=== PATIENT | female | born 1995 | race African-American/Black ===

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

== ENCOUNTER 2017-05-20 18:08 | Emergency (ER) | payer SELFPAY ==
[~2017-05-20] VITALS: Ht 154.9 cm; Wt 68.0 kg
[~2017-05-20 18:08] MED LIST changes: +IBUP-232 PO; -METO25TA3 PO; +OXYC1TAB63 PO; -RANI150T PO; +SENN1TAB PO
[2017-05-20 18:10] VITALS: BP 114/69; PULSE 118; RESP 20; TEMP 100.8; O2SAT 100
[2017-05-20] MEDS ORDERED: AMOX875T PO (18:22)
--- NOTE | 2017-05-20 18:25 | PD ---
HPI Chief Complaint: ENT Complaint Time Seen by Provider: 18:21 Travel History International Travel<30 days: No Contact w/Intl Traveler<30days: No Traveled to known affect area: No History of Present Illness HPI 21-year-old female presents for evaluation of sore throat. Symptoms started this morning. Hurts to swallow. Associated with fever, myalgias. She is not using [id number] medications for symptom relief. Denies cough, congestion , rash, recent travel, sick contacts. She is currently menstruating. No other complaints. PFSH Past Medical History Cancer: No Cardiovascular Problems: Yes Diminished Hearing: No Endocrine: No Genitourinary: No Immune Disorder: No Musculoskeletal: No Neurologic: No Psychiatric: No Reproductive: No Respiratory: No ?: Not LMP: 05/20/17 : 3 Para: 2 Past Surgical History Abdominal Surgery: Yes (C SECTION X 2) Section: Yes (X2) Social History Alcohol Use: No Tobacco Use: No Substance Use: No Allergies-Medications (Allergen,Severity, Reaction): Coded Allergies: No Known Allergies (Unverified , 10/30/16) Reported Meds & Prescriptions Reported Meds & Active Scripts Active Senna Plus 8.6-50 mg (Sennosides-Docusate Sodium) 1 Tab Tab 2 Tab PO HS PRN Ibuprofen 600 Mg Tab 600 Mg PO Q6H PRN Oxycodone-Acetaminophen 5-325 mg Tab 2 Tab PO Q4H PRN Ferrous Sulfate 325 Mg Tab 325 Mg PO TID Review of Systems Except as stated in HPI: all other systems reviewed are Neg Physical Exam Narrative GENERAL: Well-developed well-nourished female in no acute distress. Vital signs have been reviewed. SKIN: Warm and dry. HEAD: Atraumatic. Normocephalic. EYES: Pupils equal and round. No scleral icterus. No injection or drainage. ENT: No nasal bleeding or discharge. Mucous membranes pink and moist. There is oropharyngeal erythema and exudate formation. Uvula midline with no mass effect. NECK: Trachea midline. No JVD. There is tender anterior cervical lymphadenopathy. CARDIOVASCULAR: Regular rate and rhythm. No murmur appreciated. RESPIRATORY: No accessory muscle use. Clear to auscultation. Breath sounds equal bilaterally. GASTROINTESTINAL: Abdomen soft, non-tender, nondistended. Hepatic and splenic margins not palpable. Data Data Last Documented VS Vital Signs Date Time Temp Pulse Resp B/P (MAP) Pulse Ox O2 Delivery O2 Flow Rate FiO2 05/20/17 18:10 100.8 118 20 114/69 (84) 100 Room Air Orders Orders Ibuprofen (Motrin) (05/20/17 18:30) Amoxicillin (Trimox) (05/20/17 18:30) MDM Medical Decision Making Medical Screen Exam Complete: Yes Emergency Medical Condition: Yes Medical Record Reviewed: Yes Differential Diagnosis Exudate pharyngitis, tonsillitis, peritonsillar abscess, infectious mononucleosis, herpangina, epiglottitis, retropharyngeal abscess Narrative Course 21-year-old female sore throat for one day. She is febrile and tachycardic. She is not ill-appearing but she does have exudative pharyngitis, anterior cervical lymphadenopathy, her Centor score is a 4/4 and so she will be treated empirically for streptococcal pharyngitis with amoxicillin. She'll be given a dose here. She is stable for discharge. Diagnosis Primary Impression: Exudative pharyngitis Additional Instructions: Medication as prescribed. Stay well hydrated and well-nourished. Alternate Tylenol and Motrin for pain and fever per dosing instructions on the bottle. Return for any emergent medical conditions. Med/Other Pt SpecificInfo: Prescription(s) given Scripts Amoxicillin (Amoxicillin) 875 Mg Tab 875 MG PO BID for Infection for 10 Days, TAB 0 Refills Prov: Iris Carrasco DO 05/20/17 Disposition: 01 DISCHARGE HOME Condition: Stable Colin Kim May 20, 2017 18:25
[2017-05-20] MEDS ORDERED: AMOXICILLIN 875 MG TAB PO ONE (18:30)
[2017-05-20] MEDS ORDERED: IBUPROFEN 800 MG TAB PO ONE (18:30)
== END 2017-05-20 18:47 | disposition home or self-care (01) ==
LOC: NEPK 18:08
DX: J02.9 Acute pharyngitis, unspecified (principal)
CPT/HCPCS: 99283

== ENCOUNTER 2018-01-13 01:14 | Emergency (ER) | payer SELFPAY ==
[~2018-01-13] VITALS: Ht 154.9 cm; Wt 74.0 kg
[~2018-01-13 01:14] MED LIST changes: +AMOX875T PO; -FERR325T PO
[2018-01-13 01:21] VITALS: BP_SYST 118; BP_SYST 96; BP_DIAS 62; BP_DIAS 74; PULSE 77; RESP 18; TEMP 97.6; O2SAT 99
--- NOTE | 2018-01-13 01:37 | PD ---
HPI Chief Complaint: Cold / Flu Symptoms Time Seen by Provider: 01:28 Travel History International Travel<30 days: No Contact w/Intl Traveler<30days: No Traveled to known affect area: No History of Present Illness HPI 22-year-old female with no significant medical history presents emergency department for evaluation of sore throat and cough 1 week. Throat is a mild burning. Exacerbated with swallowing. patient reports that she has been coughing up small chunks of a yellow sputum intermittently. She believes these may be tonsil stones after doing clinical research. Patient denies any chest pain or tightness. No difficulty breathing. She has not had any fever or chills. She denies any nausea, vomiting, diarrhea. She has no other symptoms to report.. PFSH Past Medical History Cancer: No Cardiovascular Problems: Yes Diminished Hearing: No Endocrine: No Genitourinary: No Immune Disorder: No Musculoskeletal: No Neurologic: No Psychiatric: No Reproductive: No Respiratory: No Tetanus Vaccination: Unknown Influenza Vaccination: No ?: Not LMP: 01/03/2018 : 3 Para: 2 Past Surgical History Abdominal Surgery: Yes (C SECTION X 2) Section: Yes (X2) Other Surgery: Yes Social History Alcohol Use: No Tobacco Use: No Substance Use: No Allergies-Medications (Allergen,Severity, Reaction): Coded Allergies: No Known Allergies (Unverified , 10/30/16) Reported Meds & Prescriptions Reported Meds & Active Scripts Active Amoxicillin 875 Mg Tab 875 Mg PO BID 10 Days Senna Plus 8.6-50 mg (Sennosides-Docusate Sodium) 1 Tab Tab 2 Tab PO HS PRN Ibuprofen 600 Mg Tab 600 Mg PO Q6H PRN Oxycodone-Acetaminophen 5-325 mg Tab 2 Tab PO Q4H PRN Review of Systems Except as stated in HPI: all other systems reviewed are Neg Physical Exam Narrative GENERAL: Well-nourished, well-developed female patient in no acute distress SKIN: Focused skin assessment warm/dry. HEAD: Normocephalic. Atraumatic EYES: No scleral icterus. No injection or drainage. ENT: Mucosa pink and moist. Pharynx with mild erythema, no edema. No exudate. No uvular edema. No uvular, palatal, or tonsillar deviation. Airway patent. Nasal turbinates appear inflamed without nasal blood, purulent drainage or septal hematoma. NECK: Supple, trachea midline. No JVD or lymphadenopathy. CARDIOVASCULAR: Regular rate and rhythm without murmurs, gallops, or rubs. RESPIRATORY: Breath sounds clear throughout, equal bilaterally. No accessory muscle use. GASTROINTESTINAL: Abdomen soft, non-tender, nondistended. MUSCULOSKELETAL: No cyanosis, or edema. BACK: Nontender without obvious deformity. No CVA tenderness. Data Data Last Documented VS Vital Signs Date Time Temp Pulse Resp B/P (MAP) Pulse Ox O2 Delivery O2 Flow Rate FiO2 01/13/18 01:21 97.6 77 18 118/74 (89) 99 Orders Orders Group B Strep Pcr (Rapid) (01/13/18 01:33) Group A Rapid Strep Screen (01/13/18 01:33) Strep Culture (Group A) (01/13/18 01:50) MDM Medical Decision Making Medical Screen Exam Complete: Yes Emergency Medical Condition: Yes Medical Record Reviewed: Yes Differential Diagnosis Pharyngitis viral versus bacterial versus common cold versus allergies Narrative Course 22-year-old female presents emergency department for evaluation of sore throat and cough 1 week. Patient appears nontoxic. She is without distress. Her vital signs are stable. Pharynx is mildly erythematous without any significant edema. Her nasal turbinates are inflamed and reddened. Strep screen is sent. I discussed with the patient for symptom management. She is encouraged to follow-up with primary care provider and return immediately with acute worsening symptoms. Diagnosis Primary Impression: Pharyngitis Qualified Codes: J02.9 - Acute pharyngitis, unspecified Additional Impression: Post-nasal drip Referrals: Primary Care Physician Patient Instructions: General Instructions, Postnasal Drip (DC) Additional Instructions: Humidified air may help to alleviate symptoms [id number] antihistamine such as Benadryl or Zyrtec as directed on the package may help to alleviate your symptoms Follow-up the primary care provider Return immediately with acute worsening of symptoms Med/Other Pt SpecificInfo: Prescription(s) given Scripts Mometasone Nasal Grant (Nasonex Nasal Grant) 50 Mcg/Act Naspr 2 SPRAY EACH NARE DAILY for Allergy Management, #1 BOTTLE 0 Refills Prov: Lynda Joe 01/13/18 Disposition: 01 DISCHARGE HOME Condition: Stable Lynda Joe Jan 13, 2018 01:37
[2018-01-13] MEDS ORDERED: MOME17I EACH NARE (02:20)
== END 2018-01-13 03:03 | disposition home or self-care (01) ==
LOC: NEPD 01:14
DX: J02.9 Acute pharyngitis, unspecified (principal); R09.82 Postnasal drip
CPT/HCPCS: 87081; 87150; 87880; 99283

== ENCOUNTER 2018-02-23 16:37 | Emergency (ER) | payer MEDICAID ==
[~2018-02-23] VITALS: Ht 154.9 cm; Wt 60.0 kg
[~2018-02-23 16:37] MED LIST changes: +MOME17I EACH NARE
[2018-02-23 16:39] VITALS: BP 128/63; PULSE 83; RESP 18; TEMP 98.3; O2SAT 100
--- NOTE | 2018-02-23 16:57 | PD ---
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 Patient has had vaginal discharge, a thick white discharge, for 2 weeks. She reports she is in a monogamous relationship and has sometimes not utilize condom prophylaxis. She denies any significant abdominal pain or cramping. She has no urinary symptoms. Patient also reports left ear pain 3 days. She states her hearing is muffled. She denies any trauma. She states the ear pain radiates to her face. It is constant, throbbing. She has no other symptoms to report. PFSH Past Medical History Cancer: No Cardiovascular Problems: Yes Diminished Hearing: No Endocrine: No Genitourinary: No Immune Disorder: No Musculoskeletal: No Neurologic: No Psychiatric: No Reproductive: No Respiratory: No ?: Unknown LMP: JANUARY 30, 2018 : 3 Para: 2 Past Surgical History Abdominal Surgery: Yes (C SECTION X 2) Section: Yes (X2) Other Surgery: Yes Social History Alcohol Use: No Tobacco Use: No Substance Use: No Allergies-Medications (Allergen,Severity, Reaction): Coded Allergies: No Known Allergies (Unverified Adverse Reaction, Unknown, 02/23/18) Reported Meds & Prescriptions Reported Meds & Active Scripts Active Review of Systems Except as stated in HPI: all other systems reviewed are Neg Physical Exam Narrative GENERAL: Well-nourished, well-developed female patient in no acute distress SKIN: Focused skin assessment warm/dry. HEAD: Normocephalic. No mastoid tenderness EARS: Bilateral pinnae and external canals appear within normal limits. Right tympanic membranes without erythema, dullness or perforation. Left tympanic membrane is bulging, erythematous, small purulent effusion EYES: No scleral icterus. No injection or drainage. NECK: Supple, trachea midline. No JVD or lymphadenopathy. CARDIOVASCULAR: Regular rate and rhythm without murmurs, gallops, or rubs. RESPIRATORY: Breath sounds equal bilaterally. No accessory muscle use. GASTROINTESTINAL: Abdomen soft, non-tender, nondistended. No guarding. No rebound tenderness GENITOURINARY: Normal external genitalia without lesions or erythema. Vaginal vault without blood, but there is a thick white discharge. Cervical os was closed without drainage. No cervical motion tenderness. Uterus nontender and nonenlarged. Bilateral adnexa nontender without masses. MUSCULOSKELETAL: No cyanosis, or edema. BACK: Nontender without obvious deformity. No CVA tenderness. Data Data Last Documented VS Vital Signs Date Time Temp Pulse Resp B/P (MAP) Pulse Ox O2 Delivery O2 Flow Rate FiO2 02/23/18 16:39 98.3 83 18 128/63 (84) 100 Orders Orders Gc And Chlamydia Pcr (02/23/18 16:52) Wet Prep Profile (02/23/18 16:52) Urinalysis - C+S If Indicated (02/23/18 16:52) Ed Urine Pregnancytest Poc (02/23/18 16:52) Ceftriaxone Inj (Rocephin Inj) (02/23/18 17:00) Azithromycin (Zithromax) (02/23/18 17:00) Ondansetron Odt (Zofran Odt) (02/23/18 17:30) MDM Medical Decision Making Medical Screen Exam Complete: Yes Emergency Medical Condition: Yes Medical Record Reviewed: Yes Differential Diagnosis UTI versus STD versus PID versus normal exam versus otitis media versus externa versus tympanic membrane trauma Narrative Course 22-year-old female presents emergency department for evaluation of 2 complaints. Patient does have what appears to be an otitis media of the left ear. She does have vaginal discharge. She is treated empirically with azithromycin and Rocephin. 1800Pt is signed out to my attending who will assume care and disposition as she sees fit. Diagnosis Primary Impression: Otitis media Qualified Codes: H66.002 - Acute suppurative otitis media without spontaneous rupture of ear drum, left ear Additional Impression: Vaginal discharge Disposition: DISCHARGE HOME Condition: Stable JoeLynda carson GUILHERME Feb 23, 2018 16:57
[2018-02-23] MEDS ORDERED: AZITHROMYCIN 250 MG TAB PO ONE (17:00)
[2018-02-23] MEDS ORDERED: cefTRIAXone 250 MG VIAL IM ONE (17:00)
[2018-02-23] MEDS ORDERED: ONDANSETRON ODT 4 MG TAB PO ONE (17:30)
[2018-02-23 17:58] LABS: BILIRUBIN, URINE NEG (NEG); BLOOD, URINE NEG (NEG); GLUCOSE,URINE NEG (NEG); KETONE, URINE NEG (NEG); MUCUS URINE MOD /lpf (OCC); NITRITE,URINE NEG (NEG); PH, URINE 6.5 (5.0-8.5); SQUAMOUS EPITHELIAL CELL URINE 4 /hpf (0-5); URINE COLOR YELLOW (YELLW/STRAW); URINE LEUKOCYTE ESTERASE NEG (NEG)
[2018-02-23] MEDS ORDERED: LIDOCAINE HCL 1% 30 ML VIAL INFIL ONE (18:15)
[2018-02-23 18:50] VITALS: BP 118/82
== END 2018-02-23 18:51 | disposition home or self-care (01) ==
LOC: NEPD 16:37
DX: H66.002 Acute suppurative otitis media without spontaneous rupture of ear drum, left ear (principal); N89.8 Other specified noninflammatory disorders of vagina
CPT/HCPCS: 81001; 84703; 87210; 87491; 87591; 96372; 99283; J0696